=== PATIENT | female | born 1975 | race Caucasian/White ===

== ENCOUNTER 2017-02-20 10:57 | Day surgery (SDC) | payer OTHER ==
[~2017-02-20] VITALS: Ht 172.7 cm; Wt 120.5 kg
--- NOTE | 2017-02-20 06:40 | PCM.HPANE ---
Patient Data Surgeon Admitting Provider: Attending Provider:Sahil Chu DO Primary Care Physician:Terri Arnold Other Provider:Fidel Díaz Anesthesia Reason for Visit Left Carpal Tunnel Syndrome Ht/WT & BMI Height (Feet): 5 Height (Inches): 8 Weight (Kilograms): 120.52 Body Mass Index 40.00 Allergies Coded Allergies: No Known Allergies (Unverified , 02/13/17) Past Anesthesia History Anesthesia History: Denies:: Abnormal Airway, Anesthesia Reactions, Difficult Intubation, Fam Anesthesia Reaction, Fam Malignant Hypertherm, Malignant Hyperthermia Diabetes History Hx Diabetes?: No (pre diabetic when gains weight) MRSA MRSA: No Medications Hypertension Medication: Yes Home Meds Incl Beta Cecilio: No Reported Medications Lisinopril 5 Mg Tablet5 Mg PO DAILY #30 TABLET Ref 0 02/13/17 Nortriptyline 10 Mg [id number] Mg PO HS 02/13/17 Nabumetone 500 Mg [id number] Mg PO BID 30 Days 02/13/17 Methocarbamol 500 Mg [id number] Mg PO Q4H PRN For Spasm 02/13/17 Gabapentin 300 Mg [id number] Mg PO HS Ref 0 02/13/17 Dextroamphetamine/Amphetamine ER (Adderall XR)30 Mg Aounehw41 Mg PO DAILY PRN inattention Ref 0 pt takes only when she needs help to focus 02/13/17 History History of ENT Problems?: No HEENT History: Denies:: Abnormal Airway Cataracts Difficult Intubation Dysphagia Glaucoma Hearing Problem Sinus Problem TMJ Denture Type: None Teeth Condition: Within Normal Limits Hx of Heart Problems?: Yes Cardiovascular History: Positive for:: Hypertension Denies:: AICD Abdominal Aortic Aneurism Atrial Fibrillation Cardiac Surgery Heart Murmur Irregular Heartbeat Pacemaker Peripheral Vascular Rheumatic Fever Hx of Respiratory Problem?: No Respiratory History: Denies:: Asthma COPD Emphysema Oxygen Administration Pneumonia Tuberculosis Use of C-PAP Machine Use of Inhalers / NEBS Hx Neurologic Problems?: No Neurological History: Denies:: Alzheimer's Disease CVA Dementia Dizziness Headaches Multiple Sclerosis Parkinson's Disease Seizures TIA Hx of GI Problems?: No Hx of Problems?: No Genitourinary History: Denies:: Kidney Stones Urinary Tract Infection Female Hx: Denies:: Currently (hysterectomy) Problems with Breasts? Skin History: Denies:: History Skin Disorders? Pressure Ulcers Hx Musculoskeletal Problems?: Yes Musculoskeletal History: Positive for:: Back Injury (back, tailbone - doing pt right now) Fibromyalgia Musculoskeletal Trauma (left carpal tunnel current admission problem) Systemic Lupus Denies:: Joint Replacement Osteoarthritis Rheumatoid Arthritis Hx of Psycho/Social Problems?: Yes Psycho Social History: Denies:: Anxiety Hx Depression Hx Surgeries?: Yes (hysterectomy, tubal ligation) Hx Any Other Health Problems?: Yes Other History: Positive for:: Thyroid Disease (hypothyroid on no meds for last 8 years) Denies:: Cancer History Blood Transfusions: Denies:: Accept Blood Products? Blood Transfuse Reaction Blood Transfusions Hx Diabetes: No (pre diabetic when gains weight) Hx Alcohol Use: NoHx Substance Use: NoHave You Smoked inLast 12 mo: No Stop/Bang S-Snoring: Do You Snore Loudly: No T-Tired: feel tired, fatigued: No O-Obsered: Observed not breath: No P-Blood Pressure: treated: Yes B- Body Mass Index > 35 kg/m2: Yes A- Age over 50: No N- Neck Large Circumference: No G- Gender Male: No SANDRINE Total Score: 2 SANDRINE Risk Assessment: Low Risk, <3 Yes Risk Assessment Category Category 1A: Patient has history of documented sleep apnea, and HAS NOT received any narcotic, sedative or anesthesia administration during this stay. Category 1B: Patient has history of documented sleep apnea, and HAS received any narcotic , sedative or anesthesia administration during this stay Category 2: Patient has SUSPECTED Obstructive Sleep Apnea, and HAS received any narcotic , sedative or anesthesia administration during this stay. Category 3: Patient has SUSPECTED Obstructive Sleep Apnea and HAS NOT received narcotic, sedative or anesthesia administration during this stay. Category 4: Outpatient in Procedural Areas with known sleep apnea or who screen positive for High Risk via the STOP/BANG questionnaire. Exam Exam General Appearance: Alert, Oriented X3, Cooperative, No Acute Distress HEENT/AIRWAY: MP 2 Lungs: Clear to Auscultation, Normal Air Movement Heart: Exam Unremarkable, Regular Rate/Rhythm, No Murmurs/Rubs/Gallops Plan Impression Patient chart reviewed, patient interviewed and anesthestic plan with risks, benefits, and alternatives discussed, and informed consent obtained. NPO per Anesth. Guidelines: Yes ASA Physical Status: ASA3 Severe Disease Anesthetic Plan: GA, Regional Block Bene/Risks/Altern/Consents: Yes HP Complete Prior to Induction: Yes Yvonne Alcazar MD February 20, 2017 06:40
[~2017-02-20 10:57] MED LIST: AMPH30CA5 PO; GABA-502 PO; LISI-571 PO; LORazepam 1 mg Tablet PO PRN; Lactated Ringer's 1,000 ML IV SCH; NABU500T PO; NORT10CA PO; ROB500 PO
[2017-02-20] MEDS ORDERED: fentaNYL-PF 50 mCg/mL 2 mL Inj ONE (10:58)
[2017-02-20 11:30] VITALS: BP 118/50; PULSE 80; RESP 16; O2SAT 50
[2017-02-20] MEDS ORDERED: Lactated Ringer's 1,000 ML IV ONE (11:35)
[2017-02-20] MEDS ORDERED: Bupivacaine-MPF 0.25%/EPI 30 mL Inj INFILTRATE ONE (12:34)
[2017-02-20 12:48] VITALS: BP 123/104; PULSE 83; RESP 18; O2SAT 98
[2017-02-20] MEDS ORDERED: HYDROcodone-APAP 5-325 mg Tablet PO PRN (12:50)
[2017-02-20 12:55] VITALS: BP 142/68; PULSE 87; RESP 18; O2SAT 97
--- NOTE | 2017-02-20 13:54 | OP ---
[address] [address] OPERATIVE REPORT PATIENT: ALEXA MCELROY : 1975 MR#: [id number] ADMIT: 02/20/2017 JOB ID: [id number] DATE OF SURGERY: 02/20/2017 PREOPERATIVE DIAGNOSIS(ES): Left carpal tunnel syndrome. POSTOPERATIVE DIAGNOSIS(ES): Left carpal tunnel syndrome. PROCEDURE: Left carpal tunnel release. SURGEON: Sahil Chu D.O. ANESTHESIA: IV regional. INDICATIONS: The patient is a 41-year-old female with left hand numbness and tingling with EMG positive carpal tunnel syndrome. We discussed treatment options for this and she would like to proceed with a left carpal tunnel release. We discussed the risks, benefits, possible complications of surgery. All questions were answered and she wished to proceed. PROCEDURE IN DETAIL: The patient was brought to the operating room. She was given an IV regional anesthetic with some sedation. The left upper extremity was sterilely prepped and draped. An incision was made in line with the fourth ray overlying the carpal tunnel in the palm. Dissection was carefully carried through the subcutaneous tissue. The transverse carpal ligament was then identified and incised in its entirety taking care to release the ligament proximal to distal, superficial to deep. The wound was then irrigated and closed with interrupted nylon suture. Marcaine with epinephrine was added as an adjunct local anesthetic. Sterile dressings were applied as well as a volar splint. The patient tolerated the procedure well. Blood loss was minimal. POSTOPERATIVE PROTOCOL: Have the patient maintain her splint for two weeks. Ice and elevate and followup in the clinic at that time with no lifting. She was given a prescription for Hardin 5/325 for pain.
--- NOTE | 2017-02-20 14:59 | PCM.ANEP1 ---
Post Anesthesia PACU Phase 1 Assessment Vital Signs Vital Signs Date Time Temp Pulse Resp B/P Pulse Ox O2 Delivery O2 Flow Rate FiO2 02/20/17 12:55 87 18 142/68 97 Room Air 02/20/17 12:48 36.1 83 18 123/104 98 Room Air 02/20/17 11:30 36.6 80 16 118/50 50 Room Air Anesthetic Administered: Regional Block Level of Alertness: Awake, talking AMANDA's with Equal Strength: Yes Pain: No Nausea or Vomiting: No CV Function & Hydration Stable: No Airway Device: Oxygen Delivery: Room Air Lungs: Clear to Auscultation, Normal Air Movement PACU Phase 2 Assessment Complications: No Follow up Care: No Patient Instructions Provided: N/A Yvonne Alcazar MD February 20, 2017 14:59
== END 2017-02-20 23:59 | disposition home or self-care (01) ==
LOC: SAS 10:57
PROVIDERS: ATTEND Orthopaedic Surgery
DX: G56.02 Carpal tunnel syndrome, left upper limb (principal); I10 Essential (primary) hypertension; E03.9 Hypothyroidism, unspecified; M54.5 Low back pain; M79.7 Fibromyalgia; M32.9 Systemic lupus erythematosus, unspecified; Z90.710 Acquired absence of both cervix and uterus
CPT/HCPCS: 64721; J1885; J2250; J3010; J7120